=== PATIENT | female | born 1985 | race Caucasian/White ===

== ENCOUNTER 2017-06-09 03:30 | Emergency (ER) | payer OTHER ==
[~2017-06-09] VITALS: Ht 170.2 cm; Wt 72.7 kg
[2017-06-09 03:50] VITALS: BP 128/41; PULSE 130; RESP 21; O2SAT 92
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
[2017-06-09 06:14] VITALS: BP 126/60; PULSE 101; RESP 18; O2SAT 97
[2017-06-09 07:53] LABS: BASOPHILS % (AUTO) 0.8 % (0-3); EOSINOPHILS % (AUTO) 2.9 % (0-5); MONOCYTES % (AUTO) 8.7 % (4-12); Mean Corpuscular Hemoglobin 32.5 pg (27.0-35.0); Mean Corpuscular Volume 98.1 fL (81-100); NEUTROPHILS % (AUTO) 45.8 % (40-74); Platelet Count 286 bil/L (150-400)
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
== END 2017-06-09 15:15 | disposition home or self-care (01) ==
LOC: SED 03:30
DX: S01.01XA Laceration without foreign body of scalp, initial encounter (principal); F10.129 Alcohol abuse with intoxication, unspecified; T74.11XA Adult physical abuse, confirmed, initial encounter; Y07.03 Male partner, perpetrator of maltreatment and neglect; Y93.89 Activity, other specified; Y99.8 Other external cause status; Y92.59 Other trade areas as the place of occurrence of the external cause; F17.200 Nicotine dependence, unspecified, uncomplicated; Z96.642 Presence of left artificial hip joint; Z78.1 Physical restraint status
CPT/HCPCS: 12002; 36415; 70450; 80053; 85025; 90791; 96372; 99285; G0480; J2060; J2250